=== PATIENT | male | born 1995 | race Caucasian/White ===

== ENCOUNTER 2021-06-05 09:27 | Outpatient (CLI) | payer OTHER, SELFPAY ==
[2021-06-05 17:56] LABS: SARS-CoV-2 Ag Negative (Negative)
== END 2021-06-05 09:28 | disposition home or self-care (01) ==
PROVIDERS: PCP Nurse Practitioner Family; Visit Provider Nurse Practitioner Family
DX: Z20.822 Contact with and (suspected) exposure to COVID-19 (principal)
CPT/HCPCS: 87426; C9803